=== PATIENT | male | born 1985 | race Caucasian/White ===

== ENCOUNTER 2020-08-08 12:19 | Emergency (ER) | payer MEDICAID, OTHER ==
[2020-08-08 12:28] VITALS: BP 136/97
--- NOTE | 2020-08-08 12:57 | ED Physician Documentation ---
History of Present Illness - Stated complaint Stated Complaint: R SHOULDER PX - Chief complaint Chief Complaint: Ext Problem - History obtained from History obtained from: Patient - Additonal information Additional information: 34-year-old man, previously healthy presents with right shoulder pain intermittent over the past month, progressive, gradual onset, worse with heavy lifting that he has been doing at work, nonradiating, aching, better with IcyHot. Denies weakness, numbness or other injuries. Denies trauma. Review of Systems Musculoskeletal: reports: Joint pain. denies: Joint swelling PD PAST MEDICAL HISTORY - Past Medical History Past Medical History: No - Past Surgical History Past Surgical History: Yes - Present Medications Home Medications: Ambulatory Orders Medication Instructions Recorded Confirmed No Known Home Medications 01/25/16 08/08/20 - Allergies Allergies/Adverse Reactions: Allergies Allergy/AdvReac Type Severity Reaction Status Date / Time Penicillins Allergy Unknown Verified 08/08/20 12:25 - Social History Does the pt smoke?: No Smoking Status: Never smoker Does the pt drink ETOH?: Yes Does the pt have substance abuse?: No - Immunizations Immunizations are current?: Yes PD ED PE NORMAL - Vitals Vital signs reviewed: Yes - General General: Alert and oriented X 3 - HEENT HEENT: Atraumatic, PERRL, EOMI - Neck Neck: No bony TTP - Derm Derm: Normal color, Warm and dry - Extremities Extremities: No deformity, No tenderness to palpate, Other (normal ROM of R shoulder but discomfort with rom) - Neuro Neuro: No motor deficit, No sensory deficit Results - Vitals Vitals: Vital Signs - 24 hr 08/08/20 12:25 Temperature 36.5 C Heart Rate 96 Respiratory 16 Rate Blood Pressure 136/97 H O2 Saturation 96 Oxygen O2 Source Room air PD MEDICAL DECISION MAKING - ED course ED course: 34-year-old man presents with repetitive use injury to right shoulder. No bony tenderness. No reason to suspect traumatic injury or fracture. No evidence of dislocation. Discussed with patient and shared decision was made to not pursue x-ray. Conservative measures only. Return precautions discussed. Follow-up with primary doctor. Patient may need MRI or physical therapy in future. Departure - Departure Disposition: 01 Home, Self Care Clinical Impression: Shoulder pain, right Condition: Good Instructions: [facility] ED Sprain Shoulder Comments: It was nice to meet you, Mr. Taylor. As we discussed, you should avoid using your right shoulder for heavy lifting for the next 2 to 6 weeks. Take ibuprofen 600 mg every 6 hours as needed for pain.Return to the ED for any new or worsening symptoms follow up with your PMD. Forms: Activity restrictions
== END 2020-08-08 13:06 | disposition home or self-care (01) ==
LOC: ED 12:19
DX: S49.91XA Unspecified injury of right shoulder and upper arm, initial encounter (principal); X50.3XXA Overexertion from repetitive movements, initial encounter; Y99.0 Civilian activity done for income or pay
CPT/HCPCS: 99282